=== PATIENT | female | born 1935 | race Caucasian/White ===

== ENCOUNTER → 2017-06-18 | Outpatient (REF) | payer MEDICARE, OTHER, BC | LOC: M LAB REF 15:34 | DX: L08.9 Local infection of the skin and subcutaneous tissue, unspecified (principal) | CPT/HCPCS: 87186 ==

== ENCOUNTER → 2017-07-22 | Outpatient (REF) | payer MEDICARE, OTHER | LOC: M LAB REF 15:26 | DX: L08.9 Local infection of the skin and subcutaneous tissue, unspecified (principal) | CPT/HCPCS: 87186 ==

== ENCOUNTER → 2017-08-06 | Outpatient (REF) | payer MEDICARE, OTHER | LOC: M LAB REF 15:27 | DX: L08.9 Local infection of the skin and subcutaneous tissue, unspecified (principal) | CPT/HCPCS: 87186 ==

== ENCOUNTER → 2017-09-16 | Outpatient (REF) | payer MEDICARE, OTHER | LOC: M LAB REF 15:51 | DX: L08.9 Local infection of the skin and subcutaneous tissue, unspecified (principal) | CPT/HCPCS: 87077; 87186 ==

== ENCOUNTER → 2018-05-29 | Outpatient (REF) | payer MEDICARE, BC | LOC: M SFHCPLAZ 11:43 | DX: D23.39 Other benign neoplasm of skin of other parts of face (principal) | CPT/HCPCS: 88305 ==

== ENCOUNTER → 2019-05-07 | Outpatient (REF) | payer MEDICARE, OTHER, BC | LOC: M LAB REF 18:59 | PROVIDERS: ATTEND Dermatology | DX: C44.722 Squamous cell carcinoma of skin of right lower limb, including hip (principal) ==

== ENCOUNTER → 2019-07-01 | Outpatient (REF) | payer MEDICARE, OTHER, BC | LOC: M LAB REF 10:08 | PROVIDERS: ATTEND Dermatology | DX: L90.5 Scar conditions and fibrosis of skin (principal) | CPT/HCPCS: 11602; 11900; 13121; 17000; 88305; J3301 ==

== ENCOUNTER → 2019-08-11 | Outpatient (REF) | payer MEDICARE, OTHER, BC | LOC: M LAB REF 17:28 | PROVIDERS: ATTEND Dermatology | DX: S81.801D Unspecified open wound, right lower leg, subsequent encounter (principal) ==

== ENCOUNTER → 2020-09-07 | Outpatient (REF) | payer MEDICARE, OTHER, BC | LOC: M LAB REF 19:21 | PROVIDERS: ATTEND Physician Assistant | DX: L85.8 Other specified epidermal thickening (principal) | CPT/HCPCS: 11102; 88305; G0463 ==

== ENCOUNTER → 2020-09-29 | Outpatient (REF) | payer MEDICARE, BC | LOC: M LAB REF 14:06 | PROVIDERS: ATTEND Dermatology | DX: L57.0 Actinic keratosis (principal); L57.8 Other skin changes due to chronic exposure to nonionizing radiation ==

== ENCOUNTER → 2020-12-27 | Outpatient (REF) | payer MEDICARE, OTHER, BC | LOC: M LAB REF 14:17 | PROVIDERS: ATTEND Physician Assistant | DX: C44.729 Squamous cell carcinoma of skin of left lower limb, including hip (principal) | CPT/HCPCS: 11102; 88305; G0463 ==

== ENCOUNTER → 2021-05-18 | Outpatient (REF) | payer MEDICARE, BC, OTHER | LOC: M LAB REF 16:47 | PROVIDERS: ATTEND Physician Assistant | DX: Z85.89 Personal history of malignant neoplasm of other organs and systems (principal) | CPT/HCPCS: 17000; 17003; 87070; 87077; 87186; 87205; G0463 ==

== ENCOUNTER → 2021-11-10 | Outpatient (REF) | payer MEDICARE, BC, OTHER | LOC: M SFHCDERM 17:38 | PROVIDERS: ATTEND Dermatology | DX: C44.729 Squamous cell carcinoma of skin of left lower limb, including hip (principal); D48.9 Neoplasm of uncertain behavior, unspecified ==

== ENCOUNTER → 2021-12-11 | Outpatient (REF) | payer MEDICARE, BC, OTHER | LOC: M SFHCDERM 17:13 | PROVIDERS: ATTEND Physician Assistant | DX: L85.8 Other specified epidermal thickening (principal) ==

== ENCOUNTER → 2022-03-02 | Outpatient (REF) | payer MEDICARE, BC, OTHER | LOC: M SFHCDERM 14:00 | PROVIDERS: ATTEND Dermatology | DX: L85.8 Other specified epidermal thickening (principal) ==

== ENCOUNTER → 2022-09-11 | Outpatient (REF) | payer MEDICARE, BC, OTHER | LOC: M SFHCDERM 17:09 | PROVIDERS: ATTEND Physician Assistant | DX: L85.8 Other specified epidermal thickening (principal); D23.72 Other benign neoplasm of skin of left lower limb, including hip; Z85.89 Personal history of malignant neoplasm of other organs and systems ==

== ENCOUNTER → 2022-11-13 | Outpatient (REF) | payer MEDICARE, BC, OTHER | LOC: M SFHCDERM 13:19 | PROVIDERS: ATTEND Dermatology | DX: C44.729 Squamous cell carcinoma of skin of left lower limb, including hip (principal) ==

== ENCOUNTER → 2023-01-21 | Outpatient (REF) | payer MEDICARE, BC, OTHER | LOC: M SFHCDERM 17:18 | PROVIDERS: ATTEND Physician Assistant | DX: Z51.89 Encounter for other specified aftercare (principal) ==